=== PATIENT | female | born 1985 | race Caucasian/White ===

== ENCOUNTER 2022-12-17 16:55 | Emergency (ER) | payer SELFPAY ==
[~2022-12-17] VITALS: Ht 154.9 cm; Wt 77.1 kg
[2022-12-17 17:07] VITALS: O2SAT 99
== END 2022-12-17 23:15 | disposition left against medical advice (07) ==
LOC: ER 16:55
DX: Z53.21 Procedure and treatment not carried out due to patient leaving prior to being seen by health care provider (principal)
CPT/HCPCS: A4663